=== PATIENT | male | born 1930 | race Caucasian/White ===

== ENCOUNTER 2017-04-23 10:56 | Outpatient (CLI) | payer OTHER ==
[~2017-04-23 10:56] MED LIST: ASA81 MG PO; AVAPRO300 MG PO; ZOCOR20 MG PO
== END 2017-04-23 15:23 | disposition home or self-care (01) ==
LOC: SONOGRAMA 10:56
DX: N28.1 Cyst of kidney, acquired (principal)

== ENCOUNTER 2017-05-11 08:51 | Outpatient (CLI) | payer OTHER | END 2017-05-11 14:40 | disposition home or self-care (01) | LOC: TOM 08:51 | DX: J01.20 Acute ethmoidal sinusitis, unspecified (principal) ==

== ENCOUNTER 2017-05-14 10:05 | Outpatient (CLI) | payer OTHER | END 2017-05-14 11:06 | disposition home or self-care (01) | LOC: LAB 10:05 | DX: N41.0 Acute prostatitis (principal) ==

== ENCOUNTER 2018-02-05 11:30 | Outpatient (CLI) | payer OTHER ==
[~2018-02-05] VITALS: Ht 152.4 cm; Wt 80.7 kg
== END 2018-02-05 11:45 | disposition home or self-care (01) ==
LOC: OFIC 805 11:30
DX: R42 Dizziness and giddiness (principal)

== ENCOUNTER 2018-04-02 09:24 | Outpatient (CLI) | payer OTHER ==
[~2018-04-02] VITALS: Ht 152.4 cm; Wt 80.7 kg
== END 2018-04-02 09:40 | disposition home or self-care (01) ==
LOC: OFIC 805 09:24
DX: R42 Dizziness and giddiness (principal)

== ENCOUNTER 2018-06-18 09:29 | Outpatient (CLI) | payer OTHER ==
[~2018-06-18] VITALS: Ht 152.4 cm; Wt 80.7 kg
== END 2018-06-18 09:45 | disposition home or self-care (01) ==
LOC: OFIC 805 09:29
DX: R42 Dizziness and giddiness (principal); H90.3 Sensorineural hearing loss, bilateral; H93.13 Tinnitus, bilateral

== ENCOUNTER 2018-06-22 09:34 | Outpatient (CLI) | payer OTHER | END 2018-06-22 09:51 | disposition home or self-care (01) | LOC: MRI 09:34 | DX: H90.3 Sensorineural hearing loss, bilateral (principal); R42 Dizziness and giddiness | CPT/HCPCS: 70543; A9575 ==

== ENCOUNTER 2018-07-02 09:02 | Outpatient (CLI) | payer OTHER ==
[~2018-07-02] VITALS: Ht 152.4 cm; Wt 80.7 kg
== END 2018-07-02 09:15 | disposition home or self-care (01) ==
LOC: OFIC 805 09:02
DX: R42 Dizziness and giddiness (principal); H90.3 Sensorineural hearing loss, bilateral; H93.13 Tinnitus, bilateral

== ENCOUNTER 2019-02-05 09:59 | Emergency (ER) | payer OTHER ==
[~2019-02-05] VITALS: Ht 170.2 cm; Wt 79.8 kg
== END 2019-02-05 14:39 | disposition home or self-care (01) ==
LOC: ER 09:59
DX: S40.011A Contusion of right shoulder, initial encounter (principal); W18.09XA Striking against other object with subsequent fall, initial encounter; Y93.89 Activity, other specified; Y92.018 Other place in single-family (private) house as the place of occurrence of the external cause; Y99.8 Other external cause status

== ENCOUNTER → 2019-05-10 | Outpatient (CLI) | payer OTHER | END | disposition home or self-care (01) | LOC: RAD 13:30 | DX: I10 Essential (primary) hypertension (principal) ==